=== PATIENT | male | born 1985 | race Caucasian/White ===

== ENCOUNTER → 2018-09-20 | Outpatient (CLI) | payer OTHER ==
--- NOTE | 2018-09-21 04:43 | REP ---
Clinical: Lower back pain. Technique: AP, lateral, bilateral oblique, and coned-down views. Findings: Alignment and lordosis is maintained. The vertebral bodies including transverse process and spinous processes are intact and normal. There is no evidence for acute fracture / compression injury or subluxation. No evidence for spondylolysis or spondylolisthesis. No significant degenerative change is noted. Impression: Normal lumbosacral spine radiograph series. Electronically Signed by Qamar Krishnan MD 09/21/2018 04:35 A
== END ==
LOC: M ADAMS 13:59
PROVIDERS: ATTEND Physician Assistant Medical
DX: M54.5 Low back pain (principal)

== ENCOUNTER 2019-07-08 16:52 | Emergency (ER) | payer OTHER ==
[~2019-07-08] VITALS: Ht 175.3 cm; Wt 63.6 kg
[2019-07-08] MEDS ORDERED: IBUP-1022 PO (17:02)
[2019-07-08] MEDS ORDERED: AUGM875T28 PO (17:12)
[2019-07-08] MEDS ORDERED: AUGMENTIN 875 MG TAB PO ONE (17:15)
[2019-07-08 17:22] VITALS: BP 134/86
== END 2019-07-08 17:25 | disposition home or self-care (01) ==
LOC: M ED 16:52
DX: K04.7 Periapical abscess without sinus (principal); R09.81 Nasal congestion; H92.01 Otalgia, right ear; F17.200 Nicotine dependence, unspecified, uncomplicated

== ENCOUNTER 2019-12-08 09:32 | Emergency (ER) | payer OTHER ==
[~2019-12-08] VITALS: Ht 175.3 cm; Wt 65.9 kg
[2019-12-08 09:32] VITALS: BP 135/76
[~2019-12-08 09:32] MED LIST: AUGM875T28 PO; IBUP-1022 PO
[2019-12-08] MEDS ORDERED: AUGM875T28 PO (09:52)
[2019-12-08] MEDS ORDERED: IBUP80TA PO (09:55)
[2019-12-08] MEDS ORDERED: BENZOCAINE 20% GEL 9GM TUBE (ANBESOL MAX STRENGTH) TOP ONE (10:00)
== END 2019-12-08 10:04 | disposition home or self-care (01) ==
LOC: M ED 09:32
DX: K02.9 Dental caries, unspecified (principal); K05.30 Chronic periodontitis, unspecified; K08.89 Other specified disorders of teeth and supporting structures; F17.200 Nicotine dependence, unspecified, uncomplicated

== ENCOUNTER → 2020-07-17 | Outpatient (REF) | payer OTHER ==
[~2020-07-17] MED LIST changes: +IBUP80TA PO
[2020-07-17 17:10] LABS: HEMATOCRIT 48.9 % (42.0-52.0); HEMOGLOBIN 15.3 g/dl (13.5-17.5); MEAN CORPUSCULAR HEMOGLOBIN 30.8 pg (27.0-33.0); MEAN CORPUSCULAR HGB CONC 31.3 g/dl (32.0-36.5); MEAN CORPUSCULAR VOLUME 98.6 fl (80.0-96.0); PLATELET COUNT, AUTOMATED 345 10^3/uL (150-450); RED BLOOD COUNT 4.96 10^6/uL (4.30-6.10)
[2020-07-17 17:33] LABS: ALBUMIN 4.1 GM/DL (3.2-5.2); ALT/SGPT 30 U/L (12-78); BILIRUBIN,TOTAL 0.3 MG/DL (0.2-1.0); BLOOD UREA NITROGEN 8 MG/DL (7-18); CALCIUM LEVEL 9.2 MG/DL (8.5-10.1); CARBON DIOXIDE LEVEL 32 MEQ/L (21-32); CHLORIDE LEVEL 104 MEQ/L (98-107); CHOLESTEROL LEVEL 159 MG/DL (<200); CHOLESTEROL RISK RATIO 2.271 (<5); CREATININE FOR GFR 0.97 MG/DL (0.70-1.30); GLOMERULAR FILTRATION RATE > 60.0 (>60); GLUCOSE, FASTING 85 MG/DL (70-100); HDL CHOLESTEROL 70 MG/DL (>40); LDL CHOLESTEROL 70 MG/DL (<100); NON-HDL-C 89 MG/DL; SODIUM LEVEL 139 MEQ/L (136-145); TOTAL PROTEIN 7.5 GM/DL (6.4-8.2); TRIGLYCERIDES LEVEL 96 MG/DL (<150)
[2020-07-17 17:37] LABS: TOTAL 25(OH) VITAMIN D 14.3 NG/ML (30.0-100.0)
[2020-07-17 18:42] LABS: HEMOGLOBIN A1c 5.3 %
== END ==
LOC: M LABDRWAD 16:30
PROVIDERS: ATTEND Nurse Practitioner Psychiatric/Mental Health
DX: F32.2 Major depressive disorder, single episode, severe without psychotic features (principal)

== ENCOUNTER 2022-05-29 13:19 | Emergency (ER) | payer OTHER ==
[~2022-05-29] VITALS: Ht 175.3 cm; Wt 66.5 kg
[2022-05-29] MEDS ORDERED: LIDOCAINE 5% (LIDODERM) PATCH TD ONE (15:15)
[2022-05-29] MEDS ORDERED: ACETAMINOPHEN 500 MG TAB PO ONE (15:15)
[2022-05-29] MEDS ORDERED: KETOROLAC 30 MG/ML 1ML VIAL IM ONE (15:15)
[2022-05-29] MEDS ORDERED: diazePAM 5MG TABLET PO ONE (15:15)
[2022-05-29] MEDS ORDERED: LIDO5DIS41 TD (16:03)
[2022-05-29] MEDS ORDERED: CYCL5TAB PO (16:03)
[2022-05-29 16:08] VITALS: BP 114/71
== END 2022-05-29 16:15 | disposition home or self-care (01) ==
LOC: M ED 13:19
DX: M54.50 Low back pain, unspecified (principal)
CPT/HCPCS: 96372; 99284; J1885

== ENCOUNTER 2023-02-11 09:12 | Emergency (ER) | payer OTHER ==
[~2023-02-11] VITALS: Ht 175.3 cm; Wt 67.4 kg
[~2023-02-11 09:12] MED LIST changes: +CYCL5TAB PO; +LIDO5DIS41 TD
[2023-02-11] MEDS ORDERED: dexAMETHasone 4 MG TAB PO ONE (10:15)
[2023-02-11] MEDS ORDERED: CEPH500C PO (12:27)
[2023-02-11 12:42] VITALS: BP 139/90; TEMP 97.5; O2SAT 99
== END 2023-02-11 13:09 | disposition home or self-care (01) ==
LOC: M ED 09:12
DX: K12.2 Cellulitis and abscess of mouth (principal); F17.200 Nicotine dependence, unspecified, uncomplicated

== ENCOUNTER 2023-03-11 07:14 | Emergency (ER) | payer OTHER, SELFPAY ==
[~2023-03-11] VITALS: Ht 175.3 cm; Wt 63.6 kg
[~2023-03-11 07:14] MED LIST changes: +CEPH500C PO
[2023-03-11] MEDS ORDERED: BACITRACIN OINTMENT 30GM TUBE TOP ONE (08:00)
[2023-03-11] MEDS ORDERED: NAPROXEN 250 MG TAB PO ONE (08:00)
[2023-03-11 10:02] VITALS: BP 120/78; TEMP 98.7; O2SAT 98
== END 2023-03-11 10:10 | disposition home or self-care (01) ==
LOC: M ED 07:14
DX: T14.8XXA Other injury of unspecified body region, initial encounter (principal); V28.49XA Other motorcycle driver injured in noncollision transport accident in traffic accident, initial encounter; F17.200 Nicotine dependence, unspecified, uncomplicated

== ENCOUNTER 2023-03-22 08:16 | Emergency (ER) | payer OTHER, SELFPAY ==
[~2023-03-22] VITALS: Ht 175.3 cm; Wt 65.0 kg
[2023-03-22 08:16] VITALS: BP 128/78; TEMP 98; O2SAT 98
== END 2023-03-22 11:30 | disposition home or self-care (01) ==
LOC: M ED 08:16
DX: S49.91XD Unspecified injury of right shoulder and upper arm, subsequent encounter (principal); F17.290 Nicotine dependence, other tobacco product, uncomplicated; V29.99XD Rider (driver) (passenger) of other motorcycle injured in unspecified traffic accident, subsequent encounter

== ENCOUNTER → 2023-04-01 | Outpatient (CLI) | payer SELFPAY | LOC: M PLAIMG 06:35 | PROVIDERS: ATTEND Orthopaedic Surgery | DX: M25.511 Pain in right shoulder (principal); M19.011 Primary osteoarthritis, right shoulder; M94.211 Chondromalacia, right shoulder; S46.011A Strain of muscle(s) and tendon(s) of the rotator cuff of right shoulder, initial encounter; X58.XXXA Exposure to other specified factors, initial encounter; Y92.9 Unspecified place or not applicable; Y93.9 Activity, unspecified; Y99.9 Unspecified external cause status ==

== ENCOUNTER 2023-12-24 09:44 | Emergency (ER) | payer BC, SELFPAY ==
[~2023-12-24] VITALS: Ht 175.3 cm; Wt 67.2 kg
[2023-12-24] MEDS ORDERED: IBUP-1114 PO (10:30)
[2023-12-24] MEDS: BOOSTRIX VACCINE (TETANUS/DIPHTH/ACEL. PERTUSSIS) 0.5ML SYR IM.IMMUN ONE (10:50)
[2023-12-24] MEDS: PERCOCET 5MG/325MG TAB PO ONE (12:05)
[2023-12-24 12:35] VITALS: BP 132/79; TEMP 97.8
[2023-12-24 13:10] VITALS: O2SAT 98
[2023-12-24] MEDS ORDERED: PERC5TAB12 PO (13:10)
== END 2023-12-24 13:21 | disposition home or self-care (01) ==
LOC: M ED 09:44
DX: S62.001A Unspecified fracture of navicular [scaphoid] bone of right wrist, initial encounter for closed fracture (principal); Y92.9 Unspecified place or not applicable; Y93.9 Activity, unspecified; Y99.9 Unspecified external cause status; V29.408A Other motorcycle driver injured in collision with unspecified motor vehicles in traffic accident, initial encounter

== ENCOUNTER → 2023-12-27 | Outpatient (CLI) | payer BC ==
[~2023-12-27] MED LIST changes: +IBUP-1114 PO; +PERC5TAB12 PO
== END ==
LOC: M SOG 10:35
PROVIDERS: ATTEND Orthopaedic Surgery
DX: S62.024A Nondisplaced fracture of middle third of navicular [scaphoid] bone of right wrist, initial encounter for closed fracture (principal); S51.011A Laceration without foreign body of right elbow, initial encounter; X58.XXXA Exposure to other specified factors, initial encounter; Y92.9 Unspecified place or not applicable; Y93.9 Activity, unspecified; Y99.9 Unspecified external cause status

== ENCOUNTER → 2024-01-12 | Outpatient (CLI) | payer BC | LOC: M SOG 11:22 | PROVIDERS: ATTEND Orthopaedic Surgery | DX: S62.024A Nondisplaced fracture of middle third of navicular [scaphoid] bone of right wrist, initial encounter for closed fracture (principal); Y93.9 Activity, unspecified; Y92.9 Unspecified place or not applicable ==

== ENCOUNTER → 2024-02-01 | Outpatient (CLI) | payer BC | LOC: M SOG 07:55 | PROVIDERS: ATTEND Orthopaedic Surgery | DX: S62.024D Nondisplaced fracture of middle third of navicular [scaphoid] bone of right wrist, subsequent encounter for fracture with routine healing (principal) ==

== ENCOUNTER → 2024-02-24 | Outpatient (CLI) | payer BC | LOC: M SOG 08:02 | PROVIDERS: ATTEND Orthopaedic Surgery | DX: Z53.9 Procedure and treatment not carried out, unspecified reason (principal) ==

== ENCOUNTER → 2024-02-28 | Outpatient (CLI) | payer BC | LOC: M SOG 07:57 | PROVIDERS: ATTEND Orthopaedic Surgery | DX: S62.024D Nondisplaced fracture of middle third of navicular [scaphoid] bone of right wrist, subsequent encounter for fracture with routine healing (principal); Z53.9 Procedure and treatment not carried out, unspecified reason ==

== ENCOUNTER 2024-03-01 05:33 | Emergency (ER) | payer BC ==
[~2024-03-01] VITALS: Ht 175.3 cm; Wt 64.9 kg
[2024-03-01] MEDS: NORCO, ANEXSIA 5/325MG TABLET (HYDROcodone/ACETAMINOPHEN) PO ONE (07:26)
[2024-03-01] MEDS ORDERED: HYDR-3713 PO (08:25)
[2024-03-01 08:52] VITALS: BP 152/93; TEMP 98.5; O2SAT 99
== END 2024-03-01 08:51 | disposition home or self-care (01) ==
LOC: M ED 05:33
DX: S52.501A Unspecified fracture of the lower end of right radius, initial encounter for closed fracture (principal); S62.001A Unspecified fracture of navicular [scaphoid] bone of right wrist, initial encounter for closed fracture; Y92.410 Unspecified street and highway as the place of occurrence of the external cause; Y93.9 Activity, unspecified; Y99.9 Unspecified external cause status; V20.49XA Other motorcycle driver injured in collision with pedestrian or animal in traffic accident, initial encounter; Z79.1 Long term (current) use of non-steroidal anti-inflammatories (NSAID)

== ENCOUNTER → 2024-04-12 | Outpatient (CLI) | payer BC ==
[~2024-04-12] MED LIST changes: +HYDR-3713 PO
== END ==
LOC: M SOG 08:03
PROVIDERS: ATTEND Orthopaedic Surgery
DX: S62.024D Nondisplaced fracture of middle third of navicular [scaphoid] bone of right wrist, subsequent encounter for fracture with routine healing (principal); S62.011D Displaced fracture of distal pole of navicular [scaphoid] bone of right wrist, subsequent encounter for fracture with routine healing; Y93.9 Activity, unspecified; Y92.9 Unspecified place or not applicable

== ENCOUNTER 2024-05-26 17:43 | Emergency (ER) | payer BC ==
[~2024-05-26] VITALS: Ht 175.3 cm; Wt 66.1 kg
[2024-05-26 17:46] VITALS: BP 123/81; TEMP 98.5; O2SAT 97
== END 2024-05-26 18:43 | disposition left against medical advice (07) ==
LOC: M ED 17:43
DX: Z53.21 Procedure and treatment not carried out due to patient leaving prior to being seen by health care provider (principal)